=== PATIENT | female | born 2000 | race Caucasian/White ===

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

== ENCOUNTER 2022-01-21 16:19 | Emergency (ER) | payer OTHER ==
[~2022-01-21 16:19] MED LIST: CEPHALEXIN500 M1 PO; PROTONIX 40 MG40 M1 PO
[2022-01-21 18:54] LABS: HEMOGLOBIN 11.2 gm/dl (12.3-15.3); RED BLOOD COUNT 3.84 M/UL (4.00-5.10); WHITE BLOOD COUNT 9.8 K/UL (4.5-11.0)
[2022-01-21 19:17] LABS: BUN/CREATININE RATIO 17 (0-10)
[2022-01-21] MEDS ORDERED: CEPHALEXIN500 M1 PO (20:37)
[2022-01-24 22:09] LABS: CHLAMYDIA TRACHOMATIS, NAA Negative (Negative); NEISSERIA GONORRHOEAE, NAA Negative (Negative)
== END 2022-01-21 21:20 | disposition home or self-care (01) ==
LOC: ER1 16:19
PROVIDERS: Physician Assistant
DX: O23.42 Unspecified infection of urinary tract in pregnancy, second trimester (principal); N39.0 Urinary tract infection, site not specified; Z3A.19 19 weeks gestation of pregnancy
CPT/HCPCS: 80053; 81001; 83690; 85025; 87086; 99284; J7030

== ENCOUNTER 2022-04-10 22:41 | Outpatient (CLI) | payer OTHER | END 2022-04-11 01:15 | disposition home or self-care (01) | LOC: GENOP 22:41 | DX: O99.891 Other specified diseases and conditions complicating pregnancy (principal); N89.8 Other specified noninflammatory disorders of vagina; R10.9 Unspecified abdominal pain; Z3A.30 30 weeks gestation of pregnancy; Z91.81 History of falling | CPT/HCPCS: 81001; 82731; 83518; G0463 ==

== ENCOUNTER 2022-06-09 13:10 | Outpatient (CLI) | payer OTHER ==
[2022-06-09 14:41] LABS: RED BLOOD COUNT 3.81 M/UL (4.00-5.10)
== END 2022-06-09 14:34 | disposition home or self-care (01) ==
LOC: GENOP 13:10
PROVIDERS: Obstetrics & Gynecology
DX: Z01.812 Encounter for preprocedural laboratory examination (principal); O32.1XX0 Maternal care for breech presentation, not applicable or unspecified
CPT/HCPCS: 81001; 85025

== ENCOUNTER 2022-06-12 05:20 | Inpatient (IN) | payer OTHER ==
[~2022-06-12] VITALS: Ht 157.5 cm; Wt 68.0 kg
[2022-06-12] MEDS ORDERED: FEROSUL325 MG PO (06:25)
[2022-06-12] MEDS ORDERED: PRENATAL VITAM1 EAC8 PO (06:25)
[2022-06-12] MEDS ORDERED: IBUPROFEN600 MG PO (10:03)
[2022-06-12] MEDS ORDERED: COLACE100 MG PO (10:03)
[2022-06-12] MEDS ORDERED: PERCOCET 5-3251 EACH PO (10:03)
[2022-06-12] MEDS ORDERED: FERROUS SULFAT325 MG PO (10:03)
[2022-06-13 06:29] LABS: HEMOGLOBIN 7.3 gm/dl (12.3-15.3)
== END 2022-06-13 15:44 | disposition home or self-care (01) | DRG 787 ==
LOC: OB 05:20
PROVIDERS: ADMIT Obstetrics & Gynecology
PROC: 4A1HXCZ Monitoring of Products of Conception, Cardiac Rate, External Approach (ICD-10-PCS; 2022-06-12)
PROC: 10D00Z1 Extraction of Products of Conception, Low, Open Approach (ICD-10-PCS; principal; 2022-06-12 07:30)
DX: O32.1XX0 Maternal care for breech presentation, not applicable or unspecified (principal); D62 Acute posthemorrhagic anemia; Z3A.39 39 weeks gestation of pregnancy; O99.02 Anemia complicating childbirth; Z37.0 Single live birth; Z81.8 Family history of other mental and behavioral disorders; Z82.0 Family history of epilepsy and other diseases of the nervous system; Z82.49 Family history of ischemic heart disease and other diseases of the circulatory system; Z83.3 Family history of diabetes mellitus; Z80.8 Family history of malignant neoplasm of other organs or systems; O69.81X0 Labor and delivery complicated by cord around neck, without compression, not applicable or unspecified
CPT/HCPCS: 85014; 85018; 90471; 90715; C9113; J0690; J1170; J1885; J2274; J2370; J2405; J2590; J3010